=== PATIENT | female | born 1960 | race Caucasian/White ===

== ENCOUNTER 2017-04-23 11:59 | Emergency (ER) | payer MEDICAID ==
[~2017-04-23] VITALS: Ht 170.2 cm; Wt 93.0 kg
[2017-04-23 12:02] VITALS: BP 160/105
[2017-04-23] MEDS ORDERED: ketorolac trometh inj. 60 MG/2 ML VIAL IM ONE (12:55)
[2017-04-23] MEDS ORDERED: NAPR-1154 PO (13:13)
[2017-04-23] MEDS ORDERED: CYCL-1 PO (13:13)
== END 2017-04-23 13:21 | disposition home or self-care (01) ==
LOC: ER 12:00
DX: G89.29 Other chronic pain (principal); M54.9 Dorsalgia, unspecified; F12.10 Cannabis abuse, uncomplicated; Z88.1 Allergy status to other antibiotic agents
CPT/HCPCS: 96372; 99284; J1885